=== PATIENT | male | born 1955 | race Caucasian/White ===

== ENCOUNTER 2020-10-11 06:54 | Outpatient (NON) | payer BC, SELFPAY ==
[2020-10-11 23:32] LABS: SARS-CoV-2 RNA PCR Negative
== END 2020-10-11 06:55 ==
LOC: ANHCOVIDDT 06:54
PROVIDERS: PCP Family Medicine; Visit Provider Physician Assistant
DX: J02.9 Acute pharyngitis, unspecified (principal); R09.81 Nasal congestion; Z20.828 Contact with and (suspected) exposure to other viral communicable diseases
CPT/HCPCS: 87635; C9803; U0003

== ENCOUNTER 2020-10-14 06:57 | Outpatient (NON) | payer BC, SELFPAY ==
[2020-10-14 18:51] LABS: SARS-CoV-2 RNA PCR Negative
== END 2020-10-14 06:58 ==
PROVIDERS: PCP Family Medicine; Visit Provider Physician Assistant
DX: R68.89 Other general symptoms and signs (principal); Z20.828 Contact with and (suspected) exposure to other viral communicable diseases
CPT/HCPCS: 87635; C9803; U0003